=== PATIENT | female | born 2000 | race Caucasian/White ===

== ENCOUNTER 2022-03-04 09:40 | Emergency (ER) | payer BC ==
[~2022-03-04] VITALS: Ht 160 cm; Wt 59.1 kg
[2022-03-04] MEDS ORDERED: HYDROcodone/acetaminophen 5mg/325mg tablet PO STA (11:47)
[2022-03-04] MEDS ORDERED: fentaNYL/PF 50MCG/1 ML 2ML syringe IV ONE (15:00)
[2022-03-04] MEDS ORDERED: fentaNYL/PF 50MCG/1 ML 2ML syringe IM ONE (15:05)
[2022-03-04] MEDS ORDERED: ibuprofen tablet 400 MG TABLET PO ONE (15:25)
[2022-03-04 15:51] VITALS: BP 100/49
== END 2022-03-04 16:53 | disposition home or self-care (01) ==
LOC: ER 09:40
DX: S83.005A Unspecified dislocation of left patella, initial encounter (principal); W18.39XA Other fall on same level, initial encounter; Y93.89 Activity, other specified; Y92.89 Other specified places as the place of occurrence of the external cause; Y99.8 Other external cause status
CPT/HCPCS: 27560; 73564; 96372; 99284; J3010; 29530